=== PATIENT | female | born 1980 | race African-American/Black ===

== ENCOUNTER 2018-02-14 21:34 | Emergency (ER) | payer MEDICAID ==
[~2018-02-14] VITALS: Ht 170.2 cm; Wt 106.1 kg
[~2018-02-14 21:34] MED LIST: ALPRAZOLAM1 MG PO; CYCLOBENZAPRINE10 MG ORAL; IBUPROFEN400 MG ORAL; KEFLEX500 MG ORAL; MACROBID100 MG ORAL; NORCO 5-325 TA1 EACH ORAL
[2018-02-14 21:51] VITALS: BP 120/63
[2018-02-14 22:21] LABS: APPEARANCE,URINE SLIGHTLY CLOUDY; BILIRUBIN, URINE NEGATIVE (NEGATIVE); COLOR,URINE YELLOW; GLUCOSE, URINE (UA) NEGATIVE (NEGATIVE); KETONES,URINE NEGATIVE (NEGATIVE); LEUKOCYTE ESTERASE ,URINE 2+ (NEGATIVE); NITRITE,URINE NEGATIVE (NEGATIVE); PH,URINE 6 (4.5-8.0); PROTEIN,URINE NEGATIVE (NEGATIVE); UROBILINOGEN,URINE NORMAL MG/DL (0.0-1.0)
[2018-02-14] MEDS ORDERED: Cephalexin 500mg cap ORAL ONE (22:30)
[2018-02-14] MEDS ORDERED: MACROBID100 MG ORAL (23:02)
--- NOTE | 2018-02-14 23:03 | Emergency Room Report ---
History of Present Illness General Chief Complaint: Palpitations Source: Patient Present Illness HPI This is a 37-year-old female who is 4 para 3 approximately 12 weeks . She presents with chief complaint of upper dictation. His been on and off for the last 3 days. Nothing made it better. Nothing made it worse. No loss of consciousness. No chest pain. She started taking Benadryl yesterday for nasal congestion. She does have a cold. She also complaining of increasing urination. No fever chills but no nausea no vomiting. No hematuria. Allergies: Coded Allergies: PENICILLINS (Verified Allergy, Intermediate, rash, 12/10/11) Patient History Past Medical History: see triage record, old chart reviewed Past Surgical History: none Pertinent Family History: none Social History: Denies: smoking Last Menstrual Period: 11/24/2017 Now: Yes : 4 Para: 3 Immunizations: other Reviewed Nursing Documentation: PMH: Agreed; PSxH: Agreed Nursing Documentation-PMH Past Medical History: No History, Except For Review of Systems Eye: Denies: eye pain, blurred vision ENT: Denies: ear pain, nose congestion, throat swelling Respiratory: Denies: cough, shortness of breath Cardiovascular: Reports: palpitations; Denies: chest pain Gastrointestinal: Denies: abdominal pain, diarrhea, nausea, vomiting Genitourinary: Reports: frequency Musculoskeletal: Denies: back pain, joint pain Skin: Denies: rash Neurological: Denies: headache, numbness Endocrine: Denies: increased thirst, increased urine Hematologic/Lymphatic: Denies: easy bruising All Other Systems: negative except mentioned in HPI Physical Exam Vital Signs Date Time Temp Pulse Resp B/P (MAP) Pulse Ox O2 Delivery O2 Flow Rate FiO2 02/14/18 21:41 98.2 92 16 120/63 98 Room Air vitals normal Sp02 EP Interpretation: reviewed, normal General Appearance: well appearing, no apparent distress, alert Head: normocephalic, atraumatic Eyes: bilateral eye PERRL, bilateral eye EOMI ENT: hearing grossly normal, normal pharynx Neck: full range of motion, supple, no meningismus Respiratory: chest non-tender, lungs clear, normal breath sounds Cardiovascular #1: regular rate, rhythm, no murmur Gastrointestinal: normal bowel sounds, non tender, no mass, no organomegaly, no bruit, non-distended Musculoskeletal: back normal, gait/station normal, normal range of motion Psychiatric: mood/affect normal Skin: warm/dry Medical Decision Making Diagnostic Impression: Primary Impression: Palpitations Additional Impression: Urinary tract infection Qualified Codes: N30.00 - Acute cystitis without hematuria ER Course Patient presents with palpitation. She does have occasional PVC on the monitor. No run of V. tach. ACS, PE, dissection to name a few. We'll discharge home. Dose of antibiotics given here for UTI. My bedside ultrasound showed a live IUP with good movement and heart rate around 140s. EKG Diagnostic Results Rate: normal Rhythm: NSR ST Segments: no acute changes Rhythm Strip Diag. Results EP Interpretation: yes Rate: 90 Rhythm: NSR, no PVC's, no ectopy Last Vital Signs Date Time Temp Pulse Resp B/P (MAP) Pulse Ox O2 Delivery O2 Flow Rate FiO2 02/14/18 21:51 98.2 97 16 120/63 98 Room Air Status: improved Disposition: HOME, SELF-CARE Condition: Stable Scripts Nitrofurantoin Monohyd/M-Cryst (Nitrofurantoin Grainger-Mcr 100 mg) 100 Mg Capsule 100 MG ORAL Q12H, #14 CAP Prov: Umberto Leonard MD 02/14/18 Referrals: [facility],REFERRING (PCP) Patient Instructions: Palpitations Additional Instructions: Follow-up with your doctor in 7 days. Return if symptom worsen. Umberto Leonard MD Feb 14, 2018 23:03
[2018-02-14 23:11] VITALS: BP 124/67
[2018-02-14 23:12] VITALS: BP 124/67
--- NOTE | 2018-02-17 11:59 | Cardiology Report ---
APPROVED REPORT EKG Measurement Heart [id number] Normal sinus rhythm Normal ECG
== END 2018-02-14 23:14 | disposition home or self-care (01) ==
LOC: EMR 22:00
DX: O26.891 Other specified pregnancy related conditions, first trimester (principal); O23.41 Unspecified infection of urinary tract in pregnancy, first trimester; Z3A.12 12 weeks gestation of pregnancy; Z88.0 Allergy status to penicillin
CPT/HCPCS: 81003; 93005; 99283